=== PATIENT | female | born 1950 | race Caucasian/White ===

== ENCOUNTER 2018-05-30 11:15 | Emergency (ER) | payer MEDICARE ==
[~2018-05-30] VITALS: Ht 157.5 cm; Wt 71.2 kg
[2018-05-30 12:54] LABS: CLARITY,URINE CLEAR (CLEAR); COLOR,URINE YELLOW (YELLOW)
[2018-05-30 12:55] LABS: BILIRUBIN,URINE NEGATIVE (NEGATIVE); KETONES,URINE NEGATIVE (NEGATIVE); LEUKOCYTE ESTERASE ,URINE NEGATIVE (NEGATIVE); NITRITE,URINE NEGATIVE (NEGATIVE); PROTEIN,URINE DIPSTICK NEGATIVE (NEGATIVE); URINE UROBILINOGEN 0.2 mg/dL (0.2 - 1)
[2018-05-30 13:10] LABS: BACTERIA,URINE FEW /HPF; EPITHELIAL CELLS,URINE RARE /LPF; WBC,URINE (MAN) 0-5 /HPF (0-5)
[2018-05-30] MEDS ORDERED: AMIKACIN SULFATE 250 MG/ML 2ML VIAL IM ONE (14:30)
== END 2018-05-30 16:15 | disposition home or self-care (01) ==
LOC: ER 11:15
DX: N30.20 Other chronic cystitis without hematuria (principal); I10 Essential (primary) hypertension; E11.9 Type 2 diabetes mellitus without complications; J44.9 Chronic obstructive pulmonary disease, unspecified; K21.9 Gastro-esophageal reflux disease without esophagitis; E78.5 Hyperlipidemia, unspecified; Z85.3 Personal history of malignant neoplasm of breast; Z79.84 Long term (current) use of oral hypoglycemic drugs; Z79.82 Long term (current) use of aspirin
CPT/HCPCS: 81001; 87086; 99283

== ENCOUNTER 2018-06-07 05:29 | Observation (INO) | payer MEDICARE ==
[2018-06-03 12:51] LABS: BASOPHILS % 0.3 % (0.0-1.0); EOSINOPHILS # (AUTO) 0.2 (0.0-0.4); EOSINOPHILS % 2.4 % (0.0-6.0); HEMATOCRIT 40.3 % (34.2-44.1); HEMOGLOBIN 12.5 g/dL (12.0-16.0); LYMPHOCYTES # (AUTO) 1.9 (1.0-3.2); LYMPHOCYTES % 25.6 % (18.0-39.1); MEAN CORPUSCULAR HEMOGLOBIN 27.1 pg (28-32); MEAN CORPUSCULAR VOLUME 87.4 fL (81-99); MONOCYTES # (AUTO) 0.5 (0.2-0.8); MONOCYTES % 6.3 % (4.4-11.3); NEUTROPHILS # (AUTO) 4.9 (2.1-6.9); NEUTROPHILS % 65.1 % (38.7-80.0); PLATELET COUNT 272 x10e3/uL (140-360); RED BLOOD COUNT 4.61 x10e6/uL (3.6-5.1); RED CELL DISTRIBUTION WIDTH 14.4 % (11.7-14.4)
[2018-06-03 13:14] LABS: ALANINE AMINOTRANSFERASE 25 IU/L (0-55); ALBUMIN 4.1 g/dL (3.5-5.0); ALBUMIN/GLOBULIN RATIO 1.3 (0.8-2.0); ALKALINE PHOSPHATASE 52 IU/L (40-150); ANION GAP 17.2 mmol/L (8-16); BLOOD UREA NITROGEN 13 mg/dL (7-26); BUN/CREATININE RATIO 15 (6-25); CARBON DIOXIDE 24 mmol/L (22-29); CHLORIDE 104 mmol/L (98-107); CREATININE, SERUM 0.85 mg/dL (0.57-1.11); EST GLOMERULAR FILTRATION RATE > 60 ML/MIN (60-); GLUCOSE 100 mg/dL (74-118); POTASSIUM 4.2 mmol/L (3.5-5.1); SODIUM 141 mmol/L (136-145)
--- NOTE | 2018-06-03 13:53 | Diagnostic Imaging Report ---
EXAMINATION: CHEST 2 VIEWS INDICATION: Pelvic pain. Bladder sling surgery. Preop. COMPARISON: None FINDINGS: TUBES and LINES: None. LUNGS: Lungs are well inflated. Lungs are clear. There is no evidence of pneumonia or pulmonary edema. PLEURA: No pleural effusion or pneumothorax. HEART AND MEDIASTINUM: The cardiomediastinal silhouette is unremarkable. BONES AND SOFT TISSUES: No acute osseous lesion. Soft tissues are unremarkable. UPPER ABDOMEN: No free air under the diaphragm. IMPRESSION: No acute thoracic abnormality. Signed by: Dr. Mark Patton M.D. on 06/03/2018 1:49 PM
[~2018-06-07] VITALS: Ht 157.5 cm; Wt 78.1 kg
[2018-06-07] MEDS ORDERED: CLINDAMYCIN PHOS 900MG/ 50ML 50 ML IV ONE (05:48)
[2018-06-07] MEDS ORDERED: ZETIA10 MG PO (06:21)
[2018-06-07] MEDS ORDERED: SIMVASTATIN40 MG PO (06:21)
[2018-06-07] MEDS ORDERED: METFORMIN HCL500 MG PO (06:21)
[2018-06-07] MEDS ORDERED: CARVEDILOL3.125 MG PO (06:21)
[2018-06-07] MEDS ORDERED: CALCIUM 500+D1 EACH (06:21)
[2018-06-07] MEDS ORDERED: GABAPENTIN300 MG PO (06:21)
[2018-06-07] MEDS ORDERED: ULTRAM50 MG PO (06:21)
[2018-06-07] MEDS ORDERED: LISINOPRIL2.5 MG PO (06:21)
[2018-06-07] MEDS ORDERED: ALBUTEROL SULFAT2 MG PO (06:21)
[2018-06-07] MEDS ORDERED: MONTELUKAST SOD10 MG PO (06:21)
[2018-06-07] MEDS ORDERED: VITAMIN D1000 UNI1 PO (06:21)
[2018-06-07] MEDS ORDERED: ASPIRIN325 MG PO (06:21)
[2018-06-07] MEDS ORDERED: BUPIVACAINE 0.25% 30ML SDV INJ ONE (06:58)
[2018-06-07] MEDS ORDERED: ESTROGENS CONJUGATED VAGINAL CR 45 GM TUBE PV ONE (06:58)
[2018-06-07] MEDS ORDERED: BUPIVACAINE 0.25%/EPI 30ML SDV INJ ONE ×2 (06:58→08:42)
[2018-06-07] MEDS ORDERED: ONDANSETRON HCL INJ 2 MG/ML VIAL IV PRN (09:30)
[2018-06-07] MEDS ORDERED: DIPHENHYDRAMINE HCL 25 MG CAP PO PRN (09:30)
[2018-06-07] MEDS ORDERED: DOCUSATE SODIUM 100 MG CAP PO PRN (09:30)
[2018-06-07] MEDS ORDERED: FENTANYL CITRATE/PF 100MCG/2 ML INJ ONE ×2 (09:50→19:30)
[2018-06-07 10:35] VITALS: BP 146/72
[2018-06-07] MEDS: LACTATED RINGER'S 1,000 ML IV SCH ×2 (11:31→19:59)
--- NOTE | 2018-06-07 11:49 | Diagnostic Imaging Report ---
Exam: KUB (single view) Clinical History: OR un-reconciled count Comparison: None. Findings: No evidence of radiopaque foreign body. The upper abdomen bilaterally and the left lateral abdomen is excluded from the radiograph. There are multiple mildly dilated small bowel loops measuring up to 3.5 cm. There is air and stool in a non-dilated, normal calibre colon. No acute bony abnormality. Technique limits evaluation for stones. Impression: No evidence of radiopaque foreign body. Mildly dilated small bowel loops which could reflect non-obstructive ileus in the recent post operative setting, although a partial small bowel appearance can have a similar appearance. Signed by: Dr. Yakov Garcia MD on 06/07/2018 11:45 AM
[2018-06-07 12:30] VITALS: BP 146/72
[2018-06-07] MEDS: KETOROLAC TROMETHAMINE 30 MG/ML VIAL IM PRN (13:15)
--- NOTE | 2018-06-07 15:53 | Operative Report ---
DATE OF PROCEDURE: PREOPERATIVE DIAGNOSIS: Pelvic organ prolapse. POSTOPERATIVE DIAGNOSIS: Pelvic organ prolapse. PROCEDURES PERFORMED 1. Vaginal hysterectomy. 2. Anterior and posterior repair. 3. Sacrospinous colpopexy. SERVER SUPPORT TECHNICIAN: Divine Ryder. COMPLICATIONS: None. ESTIMATED BLOOD LOSS: 50 mL. DESCRIPTION OF PROCEDURE: Patient was taken to the OR. General anesthesia was placed. She was prepped and draped in normal sterile fashion and placed in dorsal lithotomy position. After examination under anesthesia, a weighted speculum was placed inside the vagina and cervix was grasped with Allis clamp. Subvaginal tissue was injected with Marcaine and with epinephrine 0.25%, 20 mL around the cervix. At that stage, procidentia was noted. Vaginal skin incision was made with the scalpel circumferentially around the cervix and bladder was dissected off the cervix using curved Rodriguez scissors and gentle sweeps of Ray-Marta wrapped on the index finger. Two hemostats were applied at the anterior edge of the vaginal wall and vagina was dissected off the bladder using Metzenbaum scissors using the push-spread technique and the vagina was opened in the midline using Metzenbaum scissors. The two flaps of the vagina were dissected off the underlying bladder using both sharp and blunt dissection. Bladder was reduced by applying a plain catgut 3-0 stitch around the bladder base and the purse-string suture was tied. Following this, the pelvic fascia was pierced and ischial spine and sacrospinous segment was located on each side. Capio and needle de la paz was applied and the suture was placed on each side of the pelvis using Vicryl 0 stitch. The other end was hitched to the vaginal vault. Following this, vaginal hysterectomy was performed using the LigaSure vessel occluding device where the uterosacral ligaments were held, cut, and vessel was occluded. The same was repeated on cephalad where same instrument was holding the vessels. The uterine vessel on each side held with LigaSure and cut. The apex of the broad ligament was held with LigaSure and cut and the uterus was freed. Hemostasis was found to be adequate. At that stage, the excess vaginal skin was trimmed off using curved Rodriguez scissors and the vagina was closed with interlocking sutures of Vicryl 0. The sacrospinous colpopexy sutures were tied and the vaginal vault was lifted. Posterior repair was performed at that stage where 2 Allis clamps were applied about 1 cm from the fourchette and posterior vaginal vault was injected with Marcaine with epinephrine 0.25%, 20 mL and the vagina was dissected off the perineum and rectum using Metzenbaum scissors and opened in the midline using the same instruments. Two flaps of the vagina were dissected off the underlying muscles using both sharp and blunt dissection. Levator ani were approximated using 2 sutures of Vicryl 0 sutures and excess vaginal skin was trimmed off using curved Rodriguez scissors. Vagina was closed with Vicryl 2-0 sutures and subcu for the skin. Patient tolerated the procedure well. Lap, instrument, and needle count was correct x2 at the end of the procedure. Job#: [id number] VAS
[2018-06-07] MEDS: MEPERIDINE HCL INJ 25 MG/ML VIAL IV PRN ×3 (16:10→23:55)
[2018-06-07] MEDS ORDERED: GLYCOPYRROLATE INJ 1MG/ 5 ML SYR ONE (18:11)
[2018-06-07] MEDS ORDERED: NEOSTIGMINE 5 MG/5ML SYR ONE (18:11)
[2018-06-07] MEDS ORDERED: ROCURONIUM BROMIDE 10 MG/ML 5ML VIAL ONE (18:11)
[2018-06-07] MEDS ORDERED: LIDOCAINE HCL 2% LOCAL INJ 5 ML SDV VIAL INJ ONE (18:11)
[2018-06-07] MEDS ORDERED: SEVOFLURANE INHAL SOLN 250 ML PEN BTL ONE (18:11)
[2018-06-07] MEDS ORDERED: PROPOFOL IV EMULSION 10 MG/ML 20 ML VIAL ONE (18:11)
[2018-06-07] MEDS ORDERED: ONDANSETRON HCL INJ 2 MG/ML VIAL ONE (18:11)
[2018-06-07] MEDS ORDERED: DEXAMETHASONE SOD PHOS INJ 4 MG/ML VIAL ONE (18:11)
[2018-06-07] MEDS ORDERED: MIDAZOLAM HCL 2 MG/2 ML VIAL ONE (19:30)
[2018-06-07 20:00] VITALS: BP 123/61
[2018-06-07] MEDS: CARVEDILOL 3.125 MG TAB PO SCH (20:00)
[2018-06-07] MEDS: GABAPENTIN 300 MG CAP PO SCH (20:00)
[2018-06-07] MEDS ORDERED: ALBUTEROL SULFATE 2 MG TAB PO SCH (21:00)
[2018-06-07] MEDS ORDERED: SIMVASTATIN 40 MG TAB PO SCH (21:00)
[2018-06-08] VITALS: BP 123/57
[2018-06-08] MEDS: MEPERIDINE HCL INJ 25 MG/ML VIAL IV PRN ×2 (03:36→07:52)
[2018-06-08] MEDS: LACTATED RINGER'S 1,000 ML IV SCH (03:42)
[2018-06-08 04:00] VITALS: BP 115/57
[2018-06-08] MEDS: GABAPENTIN 300 MG CAP PO SCH (07:56)
[2018-06-08] MEDS: CARVEDILOL 3.125 MG TAB PO SCH (07:56)
[2018-06-08 07:57] VITALS: BP 136/65
[2018-06-08] MEDS ORDERED: METFORMIN HCL 500 MG TAB PO SCH (08:00)
[2018-06-08 08:31] VITALS: BP 136/65
[2018-06-08] MEDS ORDERED: EZETIMIBE 10 MG TAB PO SCH (09:00)
[2018-06-08] MEDS ORDERED: LISINOPRIL 2.5 MG TAB PO SCH (09:00)
[2018-06-08] MEDS ORDERED: ASPIRIN 325 MG TAB PO SCH (09:00)
[2018-06-08] MEDS ORDERED: MONTELUKAST SODIUM 10 MG TAB PO SCH (09:00)
[2018-06-08] MEDS ORDERED: CHOLECALCIFEROL 1,000 UNIT TAB PO SCH (09:00)
[2018-06-08] MEDS: KETOROLAC TROMETHAMINE 30 MG/ML VIAL IM PRN (09:21)
[2018-06-08] MEDS ORDERED: NORCO 5-325 TA1 EACH PO (09:24)
--- OUTSIDE RECORDS SUMMARY | 2018-06-14 12:10 | XMS REPORT ---
[facility] Unknown Phone Unavailable Care Team Providers Care Superintendent [employer] Name Role Phone BERLIN LING Unavailable Unavailable Problems This patient has no known problems. Allergies, Adverse Reactions, Alerts This patient has no known allergies or adverse reactions. Medications This patient has no known medications. Results Test Description Test Time Test Comments Text Results Atomic Results Result Comments ABDOMEN-1VIEW (KUB) 2018-06-07 11:42:00 [place] [address] Patient Name: ARLINE TANNER MR #: [id number] : 1950 Age/Sex: 67/F Req #: [id number] Adm Physician: BERLIN LING MD Ordered by: BERLIN LING MD Report #: [id number] Location: [facility] Room/Bed: [place] [address] Procedure: [id number] DX/ABDOMEN-1VIEW (KUB) Exam Date: 06/07/18 Exam Time: 0900 REPORT STATUS: Signed Exam: KUB (single view) Clinical History: OR un-reconciled count Comparison: None. Findings: No evidence of radiopaque foreign body. The upper abdomen bilaterally and the left lateral abdomen is excluded from the radiograph. There are multiple mildly dilated small bowel loops measuring up to 3.5 cm. There is air and stool in a non-dilated, normal calibre colon. No acute bony abnormality. Marta hnique limits evaluation for stones. Impression: No evidence of radiopaque foreign body. Mildly dilated small bowel loops which could reflect non-obstructive ileus in the recent post operative setting, although a partial small bowel appearance can have a similar appearance. Signed by: Dr. Herrera Sauceda MD on 06/07/2018 11:45 AM Dictated By: HERRERA SAUCEDA MD 1145 Transcribed By: YAMIL on 06/07/18 1145 COPY TO: BERLIN LING MD CHEST 2 VIEWS 2018-06-03 13:20:00 [place] [address] Patient Name: ARLINE TANNER MR #: [id number] : 1950 Age/Sex: 67/F Req #: [id number] Adm Physician: Ordered by: BERLIN LING MD Report #: [id number] Location: OR Room/Bed: Procedure: [id number] DX/CHEST 2 VIEWS Exam Date: 06/03/18 Exam Time: 1220 REPORT STATUS: Signed EXAMINATION: CHEST 2 VIEWS INDICATION: Pelvic pain. Bladder sling surgery. Preop. COMPARISON: None FINDINGS: TUBES and LINES: None. LUNGS: Lungs are well inflated. Lungs are clear. There is no evidence of pneumonia or pulmonary edema. PLEURA: No pleural effusion or pneumothorax. HEART AND MEDIASTINUM: The cardiomediastinal silhouette is unremarkable. BONES AND SOFT TISSUES: No acute osseous lesion. Soft tissues are unremarkable. UPPER ABDOMEN: No free air under the diaphragm. IMPRESSION: No acute thoracic abnormality. Signed by: Dr. Mark Patton M.D. on 06/03/2018 1:49 PM Dictated By: MARK PATTON MD, MD 1340 Transcribed By: YAMIL on 06/03/18 1340 COPY TO: BERLIN LING MD
== END 2018-06-08 09:49 | disposition home or self-care (01) ==
LOC: OR 05:29 → PACU V 09:33 → IMCU 10:32
PROVIDERS: ADMIT Obstetrics & Gynecology; ATTEND Obstetrics & Gynecology
DX: N81.3 Complete uterovaginal prolapse (principal); Z01.810 Encounter for preprocedural cardiovascular examination; Z01.812 Encounter for preprocedural laboratory examination; Z01.811 Encounter for preprocedural respiratory examination; Z88.6 Allergy status to analgesic agent; Z88.5 Allergy status to narcotic agent; Z88.0 Allergy status to penicillin; Z88.8 Allergy status to other drugs, medicaments and biological substances; E11.9 Type 2 diabetes mellitus without complications; K21.9 Gastro-esophageal reflux disease without esophagitis; G89.29 Other chronic pain; Z85.3 Personal history of malignant neoplasm of breast; Z79.84 Long term (current) use of oral hypoglycemic drugs
CPT/HCPCS: 36415 ×3; 57260; 58260; 71046; 74018; 80053; 82948 ×2; 85025; 86850 ×2; 86900 ×2; 88307; 88342; 93005; G0378 ×2; J1100; J1885 ×2; J2001; J2175 ×2; J2250; J2405; J3490; J7120 ×2

== ENCOUNTER 2019-03-22 12:39 | Emergency (ER) | payer SELFPAY ==
[~2019-03-22] VITALS: Ht 157.5 cm; Wt 78.0 kg
[~2019-03-22 12:39] MED LIST: ALBUTEROL SULFAT2 MG PO; ASPIRIN325 MG PO; CALCIUM 500+D1 EACH; CARVEDILOL3.125 MG PO; GABAPENTIN300 MG PO; LISINOPRIL2.5 MG PO; METFORMIN HCL500 MG PO; MONTELUKAST SOD10 MG PO; NORCO 5-325 TA1 EACH PO; SIMVASTATIN40 MG PO; ULTRAM50 MG PO; VITAMIN D1000 UNI1 PO; ZETIA10 MG PO
[2019-03-22] MEDS ORDERED: IBUPROFEN 400 MG TAB PO ONE (14:15)
[2019-03-22] MEDS ORDERED: TETANUS/DIPHTHERIA TOX ADULT 0.5 ML SYR IM ONE (15:15)
--- NOTE | 2019-03-22 16:29 | Diagnostic Imaging Report ---
RIGHT HIP X-RAY - 3 VIEWS HISTORY: ^trauma COMPARISON: None available. FINDINGS: Bones: No acute displaced fracture. Osseous alignment is within normal limits. Joints: Mild degenerative changes of both hips and sacroiliac joints. Moderate degenerative changes at L5-S1. Soft tissues: The soft tissues appear unremarkable. IMPRESSION: No acute radiographic abnormality. Signed by: Dr. Dodie Powell M.D. on 03/22/2019 4:26 PM
--- NOTE | 2019-03-22 16:47 | Diagnostic Imaging Report ---
EXAMINATION: FOOT LEFT COMPLETE INDICATION: Trauma COMPARISON: None FINDINGS: No acute fracture or dislocation. There are postoperative changes of prior first metatarsal surgery with 2 threaded screws traversing the first metatarsal head. Alignment is anatomic. No substantial degenerative change. IMPRESSION: No acute osseous injury. Signed by: Gabriela Diaz MD on 03/22/2019 4:44 PM
[2019-03-22 18:09] VITALS: BP 131/83
== END 2019-03-22 17:30 | disposition home or self-care (01) ==
LOC: ER 12:39
DX: S70.01XA Contusion of right hip, initial encounter (principal); S90.112A Contusion of left great toe without damage to nail, initial encounter; V53.6XXA Passenger in pick-up truck or van injured in collision with car, pick-up truck or van in traffic accident, initial encounter; Y92.488 Other paved roadways as the place of occurrence of the external cause
CPT/HCPCS: 99283

== ENCOUNTER 2021-10-21 15:17 | Emergency (ER) | payer MEDICARE, OTHER ==
[~2021-10-21] VITALS: Ht 157.5 cm; Wt 78.0 kg
[2021-10-21] MEDS ORDERED: IBUPROFEN 400 MG TAB PO ONE (16:00)
[2021-10-21] MEDS ORDERED: HYDROCODON-ACE1 EA11 PO (17:18)
[2021-10-21] MEDS ORDERED: HYDROCODONE/APAP 5MG-325MG TAB PO ONE (17:30)
== END 2021-10-21 17:30 | disposition home or self-care (01) ==
LOC: ER 16:05
DX: S82.491A Other fracture of shaft of right fibula, initial encounter for closed fracture (principal); W17.89XA Other fall from one level to another, initial encounter; Y92.098 Other place in other non-institutional residence as the place of occurrence of the external cause; I10 Essential (primary) hypertension; E11.9 Type 2 diabetes mellitus without complications; E78.5 Hyperlipidemia, unspecified; K21.9 Gastro-esophageal reflux disease without esophagitis; Z85.3 Personal history of malignant neoplasm of breast
CPT/HCPCS: 72170; 99284